=== PATIENT | female | born 1955 | race Caucasian/White ===

== ENCOUNTER 2025-07-12 08:59 | Outpatient (CLI) | payer BC ==
[2025-07-11 13:10] LABS: CREATININE 0.57 MG/DL (0.40-0.90); TOTAL CARBON DIOXIDE 32.2 MMOL/L (24-32); eGFR > 90 ML/MIN
[2025-07-12] MEDS ORDERED: iohexol 300mg/ml 100ml inj. ONE (09:29)
[2025-07-12] MEDS ORDERED: GADOTERATE MEGLUMINE 7.5 MMOL/15 ML VIAL IV ONE (12:34)
--- NOTE | 2025-07-12 13:27 | RADIOLOGY REPORT ---
CT CT CHEST ABDOMEN PELVIS INDICATION: MALIGNANT NEOPLASM OF RIGHT CHOROID EXAM DATE: 07/12/2025 09:48 AM COMPARISON: None RADIATION DOSE: CTDIvol: 8 mGy, DLP: 432 mGy*cm PROCEDURE: Helical CT images were obtained of the chest, abdomen, and pelvis with intravenous contras t. Sagittal and coronal reconstructions are provided. ORAL CONTRAST: None. ADDITIONAL IMAGES / REFORMATS: None All CT scans at this medical facility are performed using dose modulation techniques as appropriate t o a performed exam including the following: Automated exposure control was utilized; adjustment of th e MA and/or KV according to patient size; and use of iterative reconstruction technique. FINDINGS: CHEST: BONES: Scattered degenerative changes are noted in the visualized osseous structures. CHEST WALL: Normal. SOFT TISSUES:Normal. MEDIASTINUM: Normal. HEART: Normal. VESSELS: Normal. LYMPH NODES: Normal. PLEURA: Normal. AIRWAYS: Normal. LUNG: Normal. ABDOMEN AND PELVIS: BONES: Scattered degenerative changes are noted in the visualized osseous structures. LIVER: 1.2 cm hypodense lesion in segment 4 liver could be focal fatty infiltration. GALLBLADDER AND BILIARY TREE: No calcified gallstones. Normal caliber wall. No intra- or extrahepatic biliary ductal dilation. PANCREAS: Normal. SPLEEN: Normal. BOWEL: Normal. Normal appendix. ADRENALS: Normal. KIDNEYS AND URETER: Subcentimeter left kidney cyst. BLADDER: Normal. REPRODUCTIVE ORGANS: Prominent parauterine vessels. LYMPH NODES:No lymphadenopathy. PERITONEUM: No ascites or free air. No other fluid collection. VESSELS: Normal RETROPERITONEUM: Normal. ABDOMINAL WALL: Normal. IMPRESSION: No acute intrathoracic or intraabdominal abnormality. No masses or lymphadenopathy visualized.
--- NOTE | 2025-07-12 14:50 | RADIOLOGY REPORT ---
PROCEDURE: MR MRI HEAD INDICATION: MALIGNANT NEOPLASM OF RIGHT CHOROID GFR>90 EXAM DATE: 07/12/2025 11:11 AM COMPARISON: None TECHNIQUE: MRI of the brain without intravenous contrast. FINDINGS: Diffusion weighted images of the brain demonstrate no evidence of acute infarction. There is no evidence of acute intracranial hemorrhage, extra-axial collection, mass effect, midline s hift, herniation or hydrocephalus. The ventricles, sulci and cisterns appear age appropriate. Mild changes of chronic microvascular ischemic disease. There is subtle mass in the right globe measuring up to 7 mm. There are no signal abnormalities on the susceptibility weighted sequences. The major vascular flow voids are present. The visualized paranasal sinuses and mastoid air cells are clear. The surrounding soft tissues and o sseous structures are unremarkable. IMPRESSION: 1. Limited evaluation without intravenous contrast. Subtle mass in the right globe measuring up to 7 mm could represent known malignant choroid neoplasm. Consider follow-up exam with intravenous contras t. 2. Mild changes chronic microvascular ischemic disease. HS:Y
== END 2025-07-12 23:59 | disposition home or self-care (01) ==
LOC: RAD 08:59
PROVIDERS: ATTEND Ophthalmology
DX: C69.31 Malignant neoplasm of right choroid (principal); M47.814 Spondylosis without myelopathy or radiculopathy, thoracic region
CPT/HCPCS: 36415; 71260; 74177; 80053; A9575; Q9967